=== PATIENT | male | born 1990 | race Asian ===

== ENCOUNTER 2018-03-04 06:36 | Emergency (ER) | payer OTHER ==
[~2018-03-04] VITALS: Ht 180.3 cm; Wt 78.0 kg
[2018-03-04 06:41] VITALS: Ht 180.3 cm; Wt 78.0 kg
[2018-03-04 07:56] LABS: BASOPHIL % 0.5 % (0-2); PLATELET COUNT 233 x10^3mcL (130-400); RED CELL DISTRIBUTION WIDTH 13.3 % (11.5-14.5)
[2018-03-04 08:05] LABS: CALCIUM 9.1 mg/dL (8.5-10.1); CARBON DIOXIDE 30.8 mmol/L (21-32); CHLORIDE SERUM 103 mmol/L (98-107); CREATININE SERUM 0.8 mg/dL (0.7-1.3); GFR1 > 60 mL/min; GLUCOSE SERUM 96 mg/dL (74-106); POTASSIUM SERUM 3.6 mmol/L (3.5-5.1); SODIUM SERUM 142 mmol/L (136-145)
[2018-03-04 08:11] LABS: ALBUMIN 4.1 g/dL (3.4-5.0); ALKALINE PHOSPHATASE 97 U/L (46-116); ALT/SGPT 30 U/L (16-63); AST/SGOT 32 U/L (15-37); BILIRUBIN TOTAL 0.61 mg/dL (0.20-1.00); TOTAL PROTEIN, SERUM 7.5 g/dL (6.4-8.2)
[2018-03-04 09:35] LABS: AMPHETAMINE QUAL UR NONE DETECTED (NEG <=1000)
[2018-03-04 10:54] VITALS: BP 121/57
== END 2018-03-04 10:54 | disposition left against medical advice (07) ==
LOC: ED 06:36
PROVIDERS: Emergency Medicine
DX: R07.9 Chest pain, unspecified (principal); R68.84 Jaw pain
CPT/HCPCS: 83880; 85378; J1885; J7030; Q0092